=== PATIENT | male | born 1950 | race Caucasian/White ===

== ENCOUNTER 2019-09-16 06:10 | Day surgery (SDC) | payer OTHER ==
[~2019-09-16] VITALS: Ht 180.3 cm; Wt 84.4 kg
[~2019-09-16 06:10] MED LIST: ACYC800 PO; AMLO10 PO; ASPI325; FAMO20; HYDACE5 PO; OMEPRAZOLE20 MG; RXHYDACE PO; SILD25T PO; Zantac150 MG; Zestril40 MG PO
--- NOTE | 2019-09-16 10:05 | NUR ---
09/16/19 Yulissa Aragon PT AWAKE, ALERT, ORIENTED. PT HARD OF HEARING. PT RESTING ON RECLINER, POLAR PACK GOING. VS WNL. PT DENIES ANY PAIN OR NAUSEA. PT TOLERATING SNACK. WILL CONTINUE TO MONITOR.
== END 2019-09-16 10:59 | disposition home or self-care (01) ==
LOC: ORSCSDS 06:10
PROVIDERS: Orthopaedic Surgery
PROC: 0RNJ4ZZ Release Right Shoulder Joint, Percutaneous Endoscopic Approach (ICD-10-PCS; principal; 2019-09-16 07:30)
PROC: 0LS14ZZ Reposition Right Shoulder Tendon, Percutaneous Endoscopic Approach (ICD-10-PCS; principal; 2019-09-16 07:30)
PROC: 0LQ14ZZ Repair Right Shoulder Tendon, Percutaneous Endoscopic Approach (ICD-10-PCS; principal; 2019-09-16 07:30)
PROC: 0RBJ4ZZ Excision of Right Shoulder Joint, Percutaneous Endoscopic Approach (ICD-10-PCS; principal; 2019-09-16 07:30)
DX: M75.121 Complete rotator cuff tear or rupture of right shoulder, not specified as traumatic (principal); M75.21 Bicipital tendinitis, right shoulder; M75.51 Bursitis of right shoulder; M75.41 Impingement syndrome of right shoulder; I10 Essential (primary) hypertension; Z86.73 Personal history of transient ischemic attack (TIA), and cerebral infarction without residual deficits; Z79.899 Other long term (current) drug therapy; Z79.82 Long term (current) use of aspirin
CPT/HCPCS: C1713; J0171; J0690; J1100; J1885; J2001; J2370; J2405; J2704; J2795; J3010; J7120

== ENCOUNTER → 2022-12-31 | Outpatient (CLI) | payer OTHER ==
[2022-12-31 18:58] LABS: BASOPHILS ABSOLUTE AUTO 0.04 K/mm3 (0.00-0.23); BASOPHILS PERCENT AUTO 1 % (0-2); EOSINOPHILS PERCENT AUTO 4 % (0-6); Hematocrit 46.5 % (37.0-53.0); Hemoglobin 15.8 g/dL (13.5-17.5); IMMATURE GRAN ABSOLUTE AUTO 0.01 K/mm3 (0.00-0.10); IMMATURE GRAN PERCENT AUTO 0 % (0-1); LYMPHOCYTES ABSOLUTE AUTO 1.55 K/mm3 (0.84-5.20); LYMPHOCYTES PERCENT AUTO 22 % (21-46); MONOCYTES ABSOLUTE AUTO 0.51 K/mm3 (0.16-1.47); MONOCYTES PERCENT AUTO 7 % (4-13); Mean Corpuscular HGB 31.9 pg (26.0-34.0); Mean Corpuscular Volume 94 fL (80-100); Mean Platelet Volume 11.8 fL (9.1-12.4); NEUTROPHILS ABSOLUTE AUTO 4.51 K/mm3 (1.96-9.15); NEUTROPHILS PERCENT AUTO 65 % (41-73); Platelet Count 228 K/mm3 (150-400); RDW Coefficient Variation 12.9 % (11.7-14.2); RDW Standard Deviation 44.5 fL (35.1-46.3); Red Blood Cell Count 4.95 M/mm3 (4.30-5.90); White Blood Cell Count 6.92 K/mm3 (4.00-11.30)
[2022-12-31 19:52] LABS: Alanine Aminotransfer (ALT/SGP 37 U/L (12-78); Albumin, Blood 4.4 g/dL (3.4-5.0); Albumin/Globulin Ratio 1.5 (0.8-1.8); Alk Phos 71 U/L (50-136); Anion Gap 5 mmol/L (6-16); Aspartate Aminotrans (AST/SGOT 20 U/L (12-37); Bilirubin, Total 0.7 mg/dL (0.1-1.0); Blood Urea Nitrogen 12 mg/dL (8-24); Bun/Creatinine Ratio 13.5 (12.0-20.0); CHOL/HDL RATIO 2.3; CO2, Blood 25 mmol/L (21-32); Calcium, Blood 8.7 mg/dL (8.5-10.1); Chloride, Blood 108 mmol/L (98-108); Cholesterol 124 mg/dL (50-200); Creatinine, Blood 0.89 mg/dL (0.60-1.20); Glomerular Filtration Rate 90 (60-); Glucose, Blood 124 mg/dL (70-99); HDL Cholesterol 55 mg/dL (>39); LDL/HDL RATIO 0.6; Low Density Lipoprotein Chol 34 mg/dL (0-110); Potassium, Blood 3.9 mmol/L (3.5-5.5); Sodium, Blood 138 mmol/L (136-145); Total Protein, Blood 7.4 g/dL (6.4-8.2); Triglycerides 176 mg/dL (30-160); Very Low Density Lipoprot Chol 35 mg/dL (6-32)
[2022-12-31 20:58] LABS: PSA, %Free 16.5 %; PSA, Free 0.587 ng/mL
== END | disposition home or self-care (01) ==
LOC: LAB SHORT 14:00 → LAB 14:00
PROVIDERS: Family Medicine
DX: Z51.81 Encounter for therapeutic drug level monitoring (principal); E29.1 Testicular hypofunction; I10 Essential (primary) hypertension; Z79.899 Other long term (current) drug therapy
CPT/HCPCS: 80053; 80061; 84153; 84154; 84443; 85025

== ENCOUNTER → 2023-06-04 | Outpatient (CLI) | payer OTHER ==
[2023-06-04 13:42] LABS: BASOPHILS ABSOLUTE AUTO 0.06 K/mm3 (0.00-0.23); BASOPHILS PERCENT AUTO 1 % (0-2); EOSINOPHILS ABSOLUTE AUTO 0.21 K/mm3 (0.00-0.68); EOSINOPHILS PERCENT AUTO 3 % (0-6); Hematocrit 51.9 % (37.0-53.0); Hemoglobin 17.3 g/dL (13.5-17.5); IMMATURE GRAN ABSOLUTE AUTO 0.02 K/mm3 (0.00-0.10); IMMATURE GRAN PERCENT AUTO 0 % (0-1); LYMPHOCYTES ABSOLUTE AUTO 1.42 K/mm3 (0.84-5.20); LYMPHOCYTES PERCENT AUTO 20 % (21-46); MONOCYTES PERCENT AUTO 10 % (4-13); Mean Corpuscular HGB 29.1 pg (26.0-34.0); Mean Corpuscular HGB Conc 33.3 g/dL (31.5-36.5); Mean Corpuscular Volume 87 fL (80-100); Mean Platelet Volume 11.1 fL (9.1-12.4); NEUTROPHILS ABSOLUTE AUTO 4.89 K/mm3 (1.96-9.15); NEUTROPHILS PERCENT AUTO 67 % (41-73); Platelet Count 238 K/mm3 (150-400); RDW Coefficient Variation 14.6 % (11.7-14.2); Red Blood Cell Count 5.94 M/mm3 (4.30-5.90)
[2023-06-04 18:47] LABS: Alanine Aminotransfer (ALT/SGP 41 U/L (12-78); Albumin, Blood 4.5 g/dL (3.4-5.0); Albumin/Globulin Ratio 1.3 (0.8-1.8); Alk Phos 68 U/L (50-136); Anion Gap 10 mmol/L (6-16); Aspartate Aminotrans (AST/SGOT 25 U/L (12-37); Bilirubin, Total 0.5 mg/dL (0.1-1.0); Blood Urea Nitrogen 11 mg/dL (8-24); Bun/Creatinine Ratio 9.2 (12.0-20.0); CO2, Blood 25 mmol/L (21-32); Calcium, Blood 9.1 mg/dL (8.5-10.1); Chloride, Blood 106 mmol/L (98-108); Globulin, Blood 3.4 g/dL (2.2-4.0); Glomerular Filtration Rate 63 (60-); Glucose, Blood 114 mg/dL (70-99); Sodium, Blood 141 mmol/L (136-145); Total Protein, Blood 7.9 g/dL (6.4-8.2)
== END | disposition home or self-care (01) ==
LOC: LAB 12:24 → LAB SHORT 12:24
PROVIDERS: Family Medicine
DX: Z51.81 Encounter for therapeutic drug level monitoring (principal); E78.49 Other hyperlipidemia
CPT/HCPCS: 80053; 85025; G0103

== ENCOUNTER → 2023-07-08 | Outpatient (CLI) | payer OTHER ==
[2023-07-08 13:29] LABS: PSA, %Free 22.9 %
[2023-07-10 17:09] LABS: FREE TESTOSTERONE(DIRECT) 11.9 pg/mL (6.6-18.1); TESTOSTERONE, SERUM 676 ng/dL (264-916)
== END | disposition home or self-care (01) ==
LOC: LAB SHORT 11:54 → LAB 11:54
PROVIDERS: Family Medicine
DX: Z51.81 Encounter for therapeutic drug level monitoring (principal); Z12.5 Encounter for screening for malignant neoplasm of prostate; E78.49 Other hyperlipidemia; R97.20 Elevated prostate specific antigen [PSA]
CPT/HCPCS: 84153; 84154; 84402; 84403